=== PATIENT | female | born 1960 | race Caucasian/White ===

== ENCOUNTER → 2017-06-03 | Outpatient (CLI) | payer BC ==
[~2017-06-03] MED LIST: 00186-0372-20 IH; XOPENEX HF0.045 MG/A IH
== END ==
LOC: MC.RAD 09:50
DX: Z12.31 Encounter for screening mammogram for malignant neoplasm of breast (principal)

== ENCOUNTER 2018-08-03 19:06 | Emergency (ER) | payer BC ==
[~2018-08-03] VITALS: Ht 154.9 cm; Wt 54.5 kg
[2018-08-03 19:19] VITALS: TEMP 97.8
[2018-08-03 20:55] LABS: BASO % 0.3 % (0.0-2.0); EOS # 0.1 (0.0-0.7); GRAN # 3.7 (1.4-6.5); GRAN % 51.2 % (42.2-75.2); HEMATOCRIT 40.6 % (37.0-47.0); HEMOGLOBIN 13.3 g/dl (12.5-16.0); LYMPH # 2.5 (1.2-3.4); LYMPH % 34.8 % (20.0-51.0); MEAN CELL VOLUME 87 fl (80.0-100.0); MEAN CORPUSCULAR HEMOGLOBIN 29 pg (27.0-31.0); MEAN CORPUSCULAR HGB CONC 33 g/dl (33.0-37.0); MEAN PLATELET VOLUME 9.9 fl (7.4-10.4); MONO # 0.9 (0.1-0.6); MONO % 12.4 % (1.7-9.3); PLATELET COUNT 259 K/mm3 (130-400); RED BLOOD COUNT 4.65 M/mm3 (4.10-5.30)
[2018-08-03 21:00] LABS: PROTHROMBIN TIME 11.6 SECONDS (9.7-12.8)
[2018-08-03] MEDS ORDERED: SINGULAIR 110 MG/TAB PO (21:01)
[2018-08-03] MEDS ORDERED: SPIRIVA RE2.5 MCG/Ac IH (21:01)
[2018-08-03] MEDS ORDERED: BACTRIM DS 8001 TAB PO (21:01)
[2018-08-03] MEDS ORDERED: ALBUTEROL0.83 MG/ML IH (21:01)
[2018-08-03] MEDS ORDERED: FOSAMAX 70MG TA70 MG PO (21:01)
[2018-08-03] MEDS ORDERED: SYNTHROID0.05 MG/TA PO (21:01)
[2018-08-03 21:05] LABS: ALANINE AMINOTRANSFERASE 51 U/L (9-52); ALBUMIN 4.7 gm/dL (3.5-5.0); ALKALINE PHOSPHATASE 85 U/L (50-136); ANION GAP 14 mmol/L (7-16); AST,SGOT 38 U/L (15-37); BILIRUBIN,TOTAL 0.3 mg/dL (0.0-1.0); BLOOD UREA NITROGEN 16 mg/dL (7-17); CALCIUM 9.6 mg/dL (8.4-10.2); CARBON DIOXIDE 24 mmol/L (22-30); CHLORIDE 100 mmol/L (98-107); CREATININE, serum 0.99 mg/dL (0.52-1.25); GLUCOSE 100 mg/dL (74-106); POTASSIUM 4.1 mmol/L (3.4-5.0); SODIUM 138 mmol/L (137-145); TOTAL PROTEIN 7.8 gm/dL (6.4-8.2)
[2018-08-03 21:22] LABS: TROPONIN-I < 0.012 ng/mL (0.000-0.035)
[2018-08-04 00:02] VITALS: BP 114/74; PULSE 75
[2018-08-04] MEDS ORDERED: LIDODERM 5% PATC1 EA TP (00:24)
[2018-08-04] MEDS ORDERED: VOLTAREN 75 DR75 MG PO (00:24)
== END 2018-08-04 00:59 | disposition home or self-care (01) ==
LOC: COL.ER 19:06
PROVIDERS: Emergency Medicine
DX: S20.212A Contusion of left front wall of thorax, initial encounter (principal); J45.909 Unspecified asthma, uncomplicated; Z98.890 Other specified postprocedural states; Z90.710 Acquired absence of both cervix and uterus; W22.8XXA Striking against or struck by other objects, initial encounter
CPT/HCPCS: A9284; J1885; J2405; J3010; J7030; Q9967

== ENCOUNTER 2019-04-16 15:00 | Outpatient (CLI) | payer BC ==
[~2019-04-16] VITALS: Ht 154.9 cm; Wt 54.0 kg
[~2019-04-16 15:00] MED LIST changes: +00186-0370-20 IH; -00186-0372-20 IH; +ALBUTEROL0.83 MG/ML IH; +BACTRIM DS 8001 TAB PO; +FOSAMAX 70MG TA70 MG PO; +LIDODERM 5% PATC1 EA TP; +SINGULAIR 110 MG/TAB PO; +SPIRIVA RE2.5 MCG/Ac IH; +SYNTHROID0.05 MG/TA PO; +VOLTAREN 75 DR75 MG PO
[2019-04-16 15:17] VITALS: BP 119/78; PULSE 88; TEMP 9
[2019-04-16] MEDS ORDERED: VITAMIN D31000 I1 PO (16:34)
[2019-04-16] MEDS ORDERED: TUMS ULTRA ST1000 MG PO (16:35)
[2019-04-16] MEDS ORDERED: CRANBERRY FRUI425 MG PO (16:36)
== END 2019-04-16 17:00 | disposition home or self-care (01) ==
LOC: EUO 15:00
DX: M81.0 Age-related osteoporosis without current pathological fracture (principal)
CPT/HCPCS: J3489

== ENCOUNTER 2019-09-30 10:00 | Outpatient (RCR) | payer BC ==
[~2019-09-30 10:00] MED LIST changes: +CRANBERRY FRUI425 MG PO; +TUMS ULTRA ST1000 MG PO; +VITAMIN D31000 I1 PO
[2019-10-08] MEDS ORDERED: SPIRIVA RE2.5 MCG/Ac IH (06:37)
[2019-10-08] MEDS ORDERED: SYNTHROID0.05 MG/TA PO (06:38)
[2019-10-08] MEDS ORDERED: MACRODANTIN100 PO (06:41)
== END 2019-10-07 08:39 | disposition home or self-care (01) ==
LOC: MKS.ESL.PT 10:00
DX: M16.11 Unilateral primary osteoarthritis, right hip (principal)

== ENCOUNTER 2019-11-30 05:27 | Day surgery (SDC) | payer BC ==
[~2019-11-30] VITALS: Ht 154.9 cm; Wt 54.5 kg
[2019-11-30] VITALS (10 sets, daily range): BP systolic 105–141; BP diastolic 56–76; PULSE 68–110; TEMP 97–98.9
[~2019-11-30 05:27] MED LIST changes: +MACRODANTIN100 PO
[2019-11-30] MEDS ORDERED: MACROBID 1100 MG/CAP PO (05:52)
[2019-11-30] MEDS ORDERED: VITAMIN D PO (05:53)
--- NOTE | 2019-11-30 06:44 | NUR ---
Patient is taken to the PACU at this time for a block with anesthesia associates. Her spouse takes all her belongings and her walker with him to the waiting room.
--- NOTE | 2019-11-30 09:35 | NUR ---
PATIENT IS ADMITED INTO ROOM 328 POST OP LEFT FEMUR NAILING. LEFT HIP DRESSINGS ARE CD&I WITH GAUZE & TEGA. PATIENT IS UNABLE TO MOVE BLE. RATES PAIN IN HIP AT 2/10. SCD'S TO BLE. POSITIVE PEDAL PULSES TO BLE. PATIENT C/O SORE THROAT POST OP, ICE CHIPS ARE HELPING. NO C/O N/V. IV INFUSING INTO RIGHT HAND IV. HEAD TO TOE ASSESSMENT WNL. VSS. AT BEDSIDE. ORIENTED TO ROOM. CALL LIGHT IN REACH.
--- NOTE | 2019-11-30 14:00 | NUR ---
PATIENT STILL C/O HER THROAT HURTING. PATIENT IS WHIMPERING AND ASKING IF THERE IS A MEDICATION THAT CAN TAKE THE PAIN AWAY. GOT PRN CHLORCEPTIC SPRAY ORDERED, AT BEDSIDE.
--- NOTE | 2019-11-30 17:00 | NUR ---
PATIENT UP TO BEDSIDE COMMODE WITH 1 ASSIST AND WALKER. GAIT SLOW BUT STEADY. NOTED LEFT HIP DRESSING IS SATURATED. APPLIED ABD X2 AND HIP SPIKA. PATIENT ASSISTED BACK INTO BED TO COMFORT. PATIENT REQUESTING SOMETHING FOR PAIN. GAVE PRN NORCO, ONE TAB WITH PUDDING PER PATIENT. PATIENT STILL HAS SORE THROAT BUT CHLOROCEPTIC SPRAY IS HELPING. AT BEDSIDE. NO OTHER NEEDS.
[2019-12-01] VITALS: BP 122/65; PULSE 104; TEMP 99.2
--- NOTE | 2019-12-01 03:15 | NUR ---
Patient has rested well throughout the night. Called and complained of nausea x1 this shift. PRN oral Phenergan administered and patient stated this relieved nausea a little bit. Patient requested pudding to eat to see if this would help her stomach feel better. This was given to patient along with a pain pill she requested. This was effective and patient has been asleep ever since. IVF continue to right hand. Up with one assist from staff to use the restroom. Utilizes walker. Steve bandage to left hip is clean, dry, and intact. Gait slow and steady. Will continue to monitor.
[2019-12-01 04:00] VITALS: BP 120/64; PULSE 98; TEMP 988
[2019-12-01 08:23] VITALS: BP 112/63; PULSE 111; TEMP 98.3
--- NOTE | 2019-12-01 10:33 | NUR ---
PT IS A/O X3 DRESSISNG CHANGE COMPLETE. GAUZE SATURATED AFTER THERAPY. REPLACED STERI STRIPS. PT COMPLETED CRITERIA FOR DISCHARGE. PROXIMAL INCISION CDI WITH WELL APPROXIMATED EDGES.
--- NOTE | 2019-12-01 11:46 | NUR ---
DISCHARGE INSTRUCTIONS REVIEWED WITH PT AND ANSWERED QUESTIONS. PRESCRIPTIONS REVIEWED WITH PT. PT VERBALIZED UNDERSTANDING. PT LEFT PER WHEEL CHAIR ACCOMPANIED BY STAFF.
--- NOTE | 2019-12-01 12:04 | NUR ---
First visit from the splitter machine. No needs right now.
== END 2019-12-01 11:30 | disposition home or self-care (01) ==
LOC: SDCO 05:27 → JCC 09:35 → SDCO 12-01 11:30
DX: S72.22XA Displaced subtrochanteric fracture of left femur, initial encounter for closed fracture (principal); M19.90 Unspecified osteoarthritis, unspecified site; J45.909 Unspecified asthma, uncomplicated; M81.0 Age-related osteoporosis without current pathological fracture; E03.9 Hypothyroidism, unspecified; D64.9 Anemia, unspecified; Z82.49 Family history of ischemic heart disease and other diseases of the circulatory system; Z90.710 Acquired absence of both cervix and uterus; Z88.1 Allergy status to other antibiotic agents; Z88.2 Allergy status to sulfonamides; Z83.3 Family history of diabetes mellitus
CPT/HCPCS: OP; C1713; C1769; J0690; J2250; J2704; J2795; J3010; J7042; J7120

== ENCOUNTER → 2020-01-12 | Outpatient (CLI) | payer BC ==
[~2020-01-12] MED LIST changes: +MACROBID 1100 MG/CAP PO; +VITAMIN D PO
== END ==
LOC: COL.RAD 12:09
DX: N30.21 Other chronic cystitis with hematuria (principal)

== ENCOUNTER 2020-03-31 09:45 | Outpatient (RCR) | payer BC | END 2020-04-21 | disposition home or self-care (01) | LOC: MKS.ESL.PT | DX: Z98.890 Other specified postprocedural states (principal) ==

== ENCOUNTER → 2020-12-08 | Outpatient (CLI) | payer BC | LOC: MC.RAD 09:25 | DX: Z12.31 Encounter for screening mammogram for malignant neoplasm of breast (principal) ==

== ENCOUNTER → 2020-12-15 | Outpatient (CLI) | payer BC | LOC: MC.RAD 13:36 | DX: N63.20 Unspecified lump in the left breast, unspecified quadrant (principal) ==

== ENCOUNTER → 2020-12-28 | Outpatient (CLI) | payer BC | LOC: MC.RAD 07:00 | DX: N60.02 Solitary cyst of left breast (principal); N64.89 Other specified disorders of breast ==

== ENCOUNTER → 2021-12-11 | Outpatient (CLI) | payer BC | LOC: MC.RAD 09:24 | DX: Z12.31 Encounter for screening mammogram for malignant neoplasm of breast (principal); N64.89 Other specified disorders of breast; N63.20 Unspecified lump in the left breast, unspecified quadrant ==

== ENCOUNTER → 2021-12-13 | Outpatient (CLI) | payer BC | LOC: MC.RAD 13:37 | DX: R92.8 Other abnormal and inconclusive findings on diagnostic imaging of breast (principal) ==

== ENCOUNTER → 2021-12-20 | Outpatient (CLI) | payer BC | LOC: MC.RAD 08:09 | DX: N64.89 Other specified disorders of breast (principal) ==

== ENCOUNTER 2022-02-09 08:11 | Day surgery (SDC) | payer BC ==
[2022-02-09] VITALS (7 sets, daily range): BP systolic 90–132; BP diastolic 55–73; PULSE 75–86; TEMP 98
[~2022-02-09] VITALS: Ht 154.9 cm; Wt 55.6 kg
[2022-02-09] MEDS ORDERED: AZO-CRANBERRY450 MG PO (08:37)
[2022-02-09] MEDS ORDERED: D3-5050000 IU PO (08:37)
[2022-02-09] MEDS ORDERED: PROAIR HFA0.09 MG/AC IH (08:38)
[2022-02-09] MEDS ORDERED: MAGNESIUM250 M1 PO (08:38)
[2022-02-09] MEDS ORDERED: VITAMINC1000TA PO (08:38)
--- NOTE | 2022-02-09 13:35 | NUR ---
Patient arrives to [facility] [facility] [place], accompanied by RIB CHOPPER and PRINCIPAL LIBRARIAN. SHe is alert and oriented. She complains of pain to MARCEL Stinson, who receives an order for fentanyl and administers this as ordered and documented.
--- NOTE | 2022-02-09 13:45 | NUR ---
Patient is resting in her room. She states her pain is improved and tolerable. She denies nausea. Her bandage is clean/dry/intact. She is offered something to eat/drink and receives pudding/crackers/apple juice.
--- NOTE | 2022-02-09 14:00 | NUR ---
Resting and spouse at side. Sipping on apple juice.
[2022-02-09] MEDS ORDERED: NORCO 325 MG-51 TAB PO ×2 (14:02→23:24)
--- NOTE | 2022-02-09 14:15 | NUR ---
Resting. IV fluids infusing.
--- NOTE | 2022-02-09 14:24 | NUR ---
Report is given to MARCEL Don at this time. [place] tablet is wasted with Florencia ROD at this time as well.
--- NOTE | 2022-02-09 14:30 | NUR ---
IV fluids infusing and site free of redness. Ice bag on the right breast.
--- NOTE | 2022-02-09 14:45 | NUR ---
IV to INT. Assisted up to the bathroom. Gait steady with one person assist. Voids and returns to room. Taking apple juice.
--- NOTE | 2022-02-09 15:03 | NUR ---
Rates pain at 5/10. [place] 5mg one tab given. Dressing clean and dry on the right breast and ice bag maintained.
--- NOTE | 2022-02-09 15:25 | NUR ---
Dismissal instructions given and voices understanding of these. Provided follow up appointment date and time.
--- NOTE | 2022-02-09 15:29 | NUR ---
Patient dismissed to home driven by spouse and taken to vehicle per wheelchair and assisted into car with dismissal instructions in hand.
== END 2022-02-09 16:02 | disposition home or self-care (01) ==
LOC: SDCO 08:11
DX: N60.91 Unspecified benign mammary dysplasia of right breast (principal); L90.5 Scar conditions and fibrosis of skin; R92.0 Mammographic microcalcification found on diagnostic imaging of breast; N60.21 Fibroadenosis of right breast
CPT/HCPCS: A4648; J0690; J1100; J2250; J2704; J2795; J7120

== ENCOUNTER 2022-02-09 21:44 | Emergency (ER) | payer BC ==
[~2022-02-09] VITALS: Ht 154.9 cm; Wt 55.5 kg
[~2022-02-09 21:44] MED LIST changes: +AZO-CRANBERRY450 MG PO; +D3-5050000 IU PO; +MAGNESIUM250 M1 PO; +NORCO 325 MG-51 TAB PO; +PROAIR HFA0.09 MG/AC IH; +VITAMINC1000TA PO
[2022-02-09 21:53] VITALS: TEMP 97.8
[2022-02-09 23:00] VITALS: BP 100/63; PULSE 77
[2022-02-09] MEDS ORDERED: NORCO 325 MG-51 TAB PO (23:24)
== END 2022-02-09 23:00 | disposition home or self-care (01) ==
LOC: COL.ER 21:44
DX: L76.22 Postprocedural hemorrhage of skin and subcutaneous tissue following other procedure (principal)
CPT/HCPCS: J1885; J2270; J2405

== ENCOUNTER → 2023-12-16 | Outpatient (CLI) | payer BC | LOC: MC.RAD 09:09 | DX: Z12.31 Encounter for screening mammogram for malignant neoplasm of breast (principal) ==